=== PATIENT | female | born 1995 | race Caucasian/White ===

== ENCOUNTER 2017-08-29 18:25 | Inpatient (IN) | payer MEDICARE, OTHER ==
[2017-08-29] MEDS ORDERED: LIDOCAINE 1% (PF) 10 MG/ML (30 ML SDV) SQ PRN (18:45)
[2017-08-29] MEDS ORDERED: METHYLERGONOVINE 0.2 MG/ML 1 ML AMP IM PRN (18:45)
[2017-08-29] MEDS ORDERED: CARBOPROST TROMETHAMINE 250 MCG/ML 1 ML AMP IM PRN (18:45)
[2017-08-29] MEDS ORDERED: TERBUTALINE 1 MG/ML VIAL SQ PRN (18:45)
[2017-08-29] MEDS ORDERED: OXYTOCIN 10 UNIT/ML 1 ML VIAL IM PRN (18:45)
[2017-08-29] MEDS ORDERED: PENICILLIN G POTASSIUM 5,000,000 UNIT in DEXTROSE 5% IN WATER 100 ML IVPB STA ×2 (18:45)
[2017-08-29 19:18] VITALS: BMI 33.4
[2017-08-29] MEDS: LACTATED RINGERS 1,000 ML IV SCH (19:27)
[2017-08-29 19:40] LABS: Appearance,Urine Clear (Clear); Bacteria,Urine Rare /hpf; Bilirubin,Urine Negative (Negative); Blood,Urine Small (Negative); Color,Urine Light Yellow; Glucose,Urine (UA) Negative (Negative); Ketones,Urine Negative (Negative); Leukocyte Esterase,Urine Negative (Negative); Nitrite,Urine Negative (Negative); PH, Urine 6.5 (5.0-8.0); Protein,Urine Negative (Negative); RBC,Urine 1 /hpf (0-5); Specific Gravity,Urine 1.005 (1.001-1.035); Urobilinogen,Urine <2.0 mg/dL (<2.0); WBC,Urine 1 /hpf (0-5)
[2017-08-29 20:05] LABS: Basophils % (A) 0 %; Eosinophils # (A) 0.1 k/uL (0-0.7); Eosinophils % (A) 1 %; HCT 39.1 % (34.0-46.0); HGB 13.3 gm/dL (11.4-16.0); Lymphocytes # (A) 1.2 k/uL (1.0-4.8); Lymphocytes % (A) 10 %; MCH 29.2 pg (25.0-35.0); MCV 85.7 fL (80.0-100.0); Mean Platelet Volume 7.7; Monocytes # (A) 0.5 k/uL (0-1.0); Monocytes % (A) 4 %; Neutrophils # (A) 9.8 k/uL (1.3-7.7); Neutrophils % (A) 84 %; Platelet Count 245 k/uL (150-450); RBC 4.56 m/uL (3.80-5.40); RDW 13.2 % (11.5-15.5); WBC 11.7 k/uL (4.0-11.0)
--- NOTE | 2017-08-29 20:08 | P.HPOB ---
History of Present Illness H&P Date: 08/29/17 Chief Complaint: Abdominal and back pain. This is a 22-year-old female 1 para 0 last menstrual period uncertain, said to be a proximally 6 months ago. Patient was transferred here via ambulance from [facility] emergency room, where a flat plate x-ray was performed of the back for back pain, at which time a vertex darling fetus was noted. Patient was transferred here via ambulance. She denies fluid leakage or vaginal bleeding. She states she is unaware that she was . No care has been rendered. 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 Patient states she is sexually active using nothing for contraception. She denies gonorrhea, chlamydia, HSV or HPV infections. Past medical history is significant for ADHD and asthma. Past surgical history is negative. Current medications Ritalin 10 mg daily, albuterol inhaler twice daily as needed , last used several weeks ago. Zantac as needed for acid reflux. ALLERGIES none known. Social history patient is single, she states she is a nonsmoker and denies alcohol or drug use. Family history patient's mother is age 44, has a history of asthma but is otherwise healthy. Her father is age 46, alive and well. Patient's mother denies history of malformations or history of defects in family members. On exam she is 5 foot 9 inches, 220 pounds, and appears slow to mentation. Blood pressure 128/79, pulse 85, respirations 16, temperature 36.7, O2 saturation 97% on room air. The chest is clear in all boone. The patient appears morbidly obese. Fundal height is consistent with full-term gestation. Cervix is 7 cm dilated, -1 station, vertex presentation, with bulging fore bag. Artificial amniorrhexis reveals clear fluid, non-malodorous. heart rate is reasonably reactive with a baseline of 140, accelerations 10 beats for 10 seconds. No decelerations are noted. Uterine contractions are occurring every 3 minutes. Impression: No care, mentally slow individual with no knowledge of , in active labor with what appears to be a full-term gestation, transferred from [facility]. Plan: All labs will be drawn at this time. Close maternal and surveillance. managed services sales consultant consult. Urine drug screen has been obtained and is positive for opiates as well as tricyclic antidepressants, both of which patient denies. Anticipate normal spontaneous vaginal delivery. Review of Systems Constitutional: Reports as per HPI Past Medical History Past Medical History: Asthma Additional Past Medical History / Comment(s): ADHD History of Any Multi-Drug Resistant Organisms: None Reported Past Surgical History: No Surgical Hx Reported Past Anesthesia/Blood Transfusion Reactions: No Reported Reaction Past Psychological History: ADD/ADHD Smoking Status: Never smoker Past Alcohol Use History: None Reported Past Drug Use History: None Reported - Past Family History Mother Family Medical History: No Reported History Medications and Allergies Home Medications Medication Instructions Recorded Confirmed Type Methylphenidate HCl [Ritalin] 1 tab PO DAILY 08/29/17 08/29/17 History PARoxetine HCL [PARoxetine HCL] 08/29/17 History PARoxetine HCL [PARoxetine HCL] 08/29/17 History Ranitidine HCl [Ranitidine HCl] 1 tab PO DAILY 08/29/17 08/29/17 History Allergies Allergy/AdvReac Type Severity Reaction Status Date / Time No Known Allergies Allergy Verified 08/29/17 18:39 Exam - Vital Signs Vital signs: Vital Signs Temp Pulse Resp BP Pulse Ox 08/29/17 18:43 97.7 F 82 16 127/76 96 Intake and Output 08/29/17 08/29/17 08/29/17 06:59 14:59 22:59 Other: Weight 99.79 kg see dictation please Results Abnormal Lab Results - Last 24 Hours (Table) 08/29/17 Range/Units 19:31 Urine Blood Small H (Negative) Urine Bacteria Rare H (None) /hpf Assessment and Plan Plan: Close maternal and surveillance. managed services sales consultant consult. Anticipate spontaneous vaginal delivery. Penicillin G prophylactically. Time with Patient: Greater than 30
[2017-08-29] MEDS: OXYTOCIN 20 UNITS/1000 ML NS 1,000 ML IV SCH (20:30)
--- NOTE | 2017-08-29 21:11 | P.PROBDLV ---
Vaginal Delivery Note - . Vaginal Delivery Note: This is a 22-year-old white female 1 para 0 with no care, no established EDC, who presented via ambulance from [facility] with complaint of back pain, noted to have a full-term vertex fetus by x-ray. Please see my admitting history and physical for details. On presentation patient was noted to be 7 cm dilated, 90% effaced, -1 station, vertex presentation. There is a bulging fore bag. labs were drawn. Antibiotics given. Artificial amniorrhexis revealed clear fluid. Patient progressed through the first stage of labor with reasonably reassuring heart tones, moderate variability and no decelerations. She denied the offer for analgesia. She became completely dilated at 2024 hours and began the second stage of labor at that time. The perineal body is prepped and draped in usual sterile fashion. With good maternal expulsive efforts infant's head delivered occiput anterior and restituted accordingly. There was no nuchal cord noted. The left or anterior shoulder was delivered from underneath the pubic symphysis at which time the oropharynx, nasopharynx and external nares were all bulb suctioned on the perineal body. Patient was officially delivered of a liveborn male infant at 2052 hours. Umbilical cord was doubly clamped and ligated, he was handed to waiting nurses for evaluation where scores of 8 and 8 at one and 5 minutes respectively were given. 's weight 3225 g or 7 lbs. 2 oz. There is a two-vessel cord noted. The placenta is delivered spontaneously, it is inspected and noted to be intact at 2055 hours. There are calcifications present, it is not malodorous. Perineal body is redraped and inspected. Inspection of the cervix, vagina, perineum, periurethral and perirectal areas reveals a small first-degree perineal laceration at 5:00. This is injected with 1% lidocaine and reapproximated with a single [id number] suture of 3-0 Vicryl. Fundus is firm and in the midline, symmetric and 18 week size. Estimated blood loss 250 mL's. weighs 7 lbs. 2 oz. or 3225 g. They are requesting circumcision further son. creative services manager consult will be obtained.
[2017-08-29] MEDS ORDERED: LANOLIN CREAM 5 GM TUBE TOPICAL PRN (21:12)
[2017-08-29] MEDS ORDERED: WITCH HAZEL 1 EACH MED..PAD TOPICAL PRN (21:12)
[2017-08-29] MEDS ORDERED: BENZOCAINE/MENTHOL SPRAY 1 GM/SPRAY AEROSOL TOPICAL PRN (21:12)
[2017-08-29] MEDS ORDERED: diphenhydrAMINE ELIXIR 25 MG/10 ML CUP PO PRN (21:12)
[2017-08-29] MEDS ORDERED: diphenhydrAMINE 50 MG/ML 1 ML VIAL IVP PRN ×2 (21:12)
[2017-08-29] MEDS ORDERED: diphenhydrAMINE 50 MG CAP PO PRN (21:12)
[2017-08-29] MEDS ORDERED: diphenhydrAMINE 25 MG CAP PO PRN (21:12)
[2017-08-29] MEDS ORDERED: ACETAMINOPHEN TAB 325 MG TAB PO PRN (21:12)
[2017-08-29] MEDS ORDERED: HYDROCORTISONE 2.5% RECTAL CREAM 30 GM TUBE RECTAL PRN (21:12)
[2017-08-29] MEDS ORDERED: ZOLPIDEM 5 MG TAB PO PRN (21:12)
[2017-08-29] MEDS ORDERED: SIMETHICONE 80 MG CHEWABLE PO PRN (21:12)
[2017-08-29] MEDS: IBUPROFEN 600 MG TAB PO PRN (21:24)
[2017-08-30 01:45] LABS: HIV AB P24 Non-Reactive (Non-Reactive); HIV P24 AG Non-Reactive (Non-Reactive)
--- NOTE | 2017-08-30 08:06 | P.PN ---
Subjective Progress Note Date: 08/30/17 Principal diagnosis: day #1 Slept well. Minimal to moderate lochia rubra. Pain well controlled. Objective - Vital Signs Vital signs: Vital Signs Temp 97.7 F 08/30/17 04:00 Pulse 64 08/30/17 04:00 Resp 16 08/30/17 04:00 BP 102/62 08/30/17 04:00 Pulse Ox 96 08/29/17 18:43 Intake & Output 08/29/17 08/30/17 08/30/17 18:59 06:59 18:59 Weight 99.79 kg Other: # Voids 1 - Constitutional General appearance: Present: average body habitus, obese - EENT Eyes: Present: PERRLA ENT: Present: hearing grossly normal - Neck Neck: Present: normal ROM - Respiratory Respiratory: bilateral: CTA - Cardiovascular Rhythm: regular - Gastrointestinal General gastrointestinal: Present: normal bowel sounds - Genitourinary Genitourinary Comment(s): Perineal body clean and dry. Fundus firm, midline, symmetric, 18 week size. - Integumentary Integumentary: Present: normal - Neurologic Neurologic: Present: CNII-XII intact - Musculoskeletal Musculoskeletal: Present: gait normal - Psychiatric Psychiatric: Present: A&O x's 3, appropriate affect - Labs CBC & Chem 7: 08/29/17 19:52 08/29/17 19:52 Labs: Abnormal Lab Results - Last 24 Hours (Table) 08/29/17 08/29/17 Range/Units 19:31 19:52 WBC 11.7 H (4.0-11.0) k/uL Neutrophils # 9.8 H (1.3-7.7) k/uL Urine Blood Small H (Negative) Urine Bacteria Rare H (None) /hpf Assessment and Plan Plan: Continue care today. library services dean consult please Time with Patient: Less than 30
[2017-08-30] MEDS: SENNOSIDES-DOCUSATE SODIUM 1 EACH TAB PO SCH (09:21)
[2017-08-31] MEDS: LACTATED RINGERS 1,000 ML IV SCH ×2 (02:48→02:49)
[2017-08-31] MEDS: SENNOSIDES-DOCUSATE SODIUM 1 EACH TAB PO SCH ×2 (02:49→08:36)
[2017-08-31] MEDS: OXYTOCIN 20 UNITS/1000 ML NS 1,000 ML IV SCH (02:49)
[2017-08-31 02:51] VITALS: RESP 16
[2017-08-31 02:52] VITALS: BP 114/65; PULSE 68; TEMP 98.3
--- NOTE | 2017-08-31 07:54 | P.DS ---
Providers Date of admission: 08/29/17 18:38 Expected date of discharge: 08/31/17 Attending physician: India Pablo Primary care physician: Stated None Hospital Course: This is a 22-year-old white female 1 para 0 EDC unknown, who presented from [place] emergency room with a full term in active labor. Patient states she was unaware that she was . She has had no care. Blood type is A+, urine drug screen positive for tricyclic antidepressants as well as opiates. Please see my dictated history and physical for details. Artificial amniorrhexis revealed clear fluid, patient presented at 7 cm dilatation. Penicillin G was given. labs were drawn. Patient went on to deliver a liveborn male with scores of 8 and 8 at one and 5 minutes respectively. He weighs 3225 g or 7 lbs. 2 oz. There was a small first -degree perineal laceration easily repaired, and an estimated blood loss of 250 mL's. Please see my dictated delivery note for details. Two-vessel cord is noted. This morning the patient appears to be doing well. She is voiding, ambulating, and passing flatus. She is not breast-feeding. is in the special care nursery oxygen therapy, therefore circumcision is not yet appropriate. The patient's lungs are clear, perineal body is clean and dry, lochia rubra is minimal to moderate. Fundus is firm and in the midline, symmetric and 18 week size. Breasts are not engorged. Extremities are negative for edema. building services coordinator consult has been requested but has not yet been performed. Patient is cleared medically for discharge home only after social worker clinical teen has seen her. I have instructed the patient no intercourse, no tampons, no douching at this time. She is to keep on a clean pad and I have reviewed with her normal lochia flow. I have recommended that she start a vitamin daily and continue through 6 weeks . We have discussed briefly options for contraception and I will review this in the office with her in detail. I would like to see the patient in the office in 6 weeks, she is instructed to call for that appointment and follow-up with me. She is also to notify me with any heavy vaginal bleeding, with any pain not alleviated by over- the-counter Motrin, or indeed with any concerns. Patient Condition at Discharge: Fair Plan - Discharge Summary New Discharge Prescriptions: No Action Ranitidine HCl [Ranitidine HCl] 1 tab PO DAILY PARoxetine HCL [PARoxetine HCL] PARoxetine HCL [PARoxetine HCL] Methylphenidate HCl [Ritalin] 1 tab PO DAILY Discharge Medication List Methylphenidate HCl [Ritalin] 1 tab PO DAILY 08/29/17 [History] PARoxetine HCL [PARoxetine HCL] 08/29/17 [History] PARoxetine HCL [PARoxetine HCL] 08/29/17 [History] Ranitidine HCl [Ranitidine HCl] 1 tab PO DAILY 08/29/17 [History] Follow up Appointment(s)/Referral(s): India Pablo MD [STAFF PHYSICIAN] - 6 Weeks
--- NOTE | 2017-08-31 08:24 | P.MSEPDOC ---
Presenting Problems - Arrival Data Date of Arrival on Unit: 08/29/17 Time of Arrival on Unit: 18:20 Mode of Transport: EMS - Complaint OB-Reason for Admission/Chief Complaint: Possible Onset of Labor, Rule Out PROM Comment: pt transferred from [place]. no care. possible full term with rom and contractions Medical History - Information : 1 Para: 0 Term: 0 : 0 Abortions: Spontaneous or Elective: 0 Number of Living Children: 0 - History Comment: no care. labs drawn with admission Review of Systems - Review of Systems Constitutional: No problems Breast: No problems ENT: No problems Cardiovascular: No problems Respiratory: No problems Gastrointestinal: No problems Genitourinary: No problems Musculoskeletal: No problems Neurological: No problems Skin: No problems Vital Signs - Temperature Temperature: 98.3 F Temperature Source: Oral - Pulse Right Brachial Pulse Rate: 68 Pulse Assessment Method: Automatic Cuff - Respirations Respiratory Rate: 16 Oxygen Delivery Method: Room Air - Blood Pressure Right Arm Blood Pressure: 114/65 Blood Pressure Mean: 81 Blood Pressure Source: Automatic Cuff Medical Screen Scoring (Pre) - Cervical Exam Dilation: 8-10 cm = 3 Effacement: More than 50% = 2 Membranes: Ruptured = 3 - Uterine Contractions Frequency: > 5 minutes apart = 1 - Maternal Vital Signs Maternal Temperature: N/A Maternal Blood Pressure: N/A Signs of Preeclampsia: N/A Maternal Respirations: N/A - Pain Assessment Pain Location and Character: Back Pain Scale Used: Numeric (1 - 10) Pain Intensity: 10 Pain Management Goal: 1 Pain Frequency: Occasional Pain Duration Units: Hours Pain Behavior: None Exhibited - Assessment Heart Rate - NICHD Category: Category II (Indeterminate) = 3 NST: Reactive, Non-reactive = 3 - Total Score Total Score (Pre): 15 - Level of Risk Level of Risk: High (10+) Physician Notification (Pre) - Physician Notified Physician Notified Date: 08/29/17 Physician Notified Time: 18:45 Physician/Practitioner Notifed:: darrel Spoke With: darrel New Order Received: Yes - Notification Comment Comment: reported to dr rojo pt has arrived. has received report from [facility] before arrival. is coming in Disposition - Disposition OB Disposition: Admit I agree with the RN Medical Screening Exam: Yes Risk & Benefit of care provided described in d/c instruction: Yes Diagnosis: O75.83
[2017-08-31] MEDS: IBUPROFEN 600 MG TAB PO PRN (08:36)
[2017-08-31 11:12] LABS: Chlamydia trachomatis rRNA Not detected (Not detected); Neisseria gonorrhoeae rRNA Not detected (Not detected)
== END 2017-08-31 13:30 | disposition home health service (06) | DRG 775 ==
LOC: FBPOP 18:25 → 4FBP 18:38
PROVIDERS: ADMIT Obstetrics & Gynecology; ATTEND Obstetrics & Gynecology
PROC: 10907ZC Drainage of Amniotic Fluid, Therapeutic from Products of Conception, Via Natural or Artificial Opening (ICD-10-PCS; principal; 2017-08-29)
PROC: 0HQ9XZZ Repair Perineum Skin, External Approach (ICD-10-PCS; principal; 2017-08-29)
PROC: 10E0XZZ Delivery of Products of Conception, External Approach (ICD-10-PCS; principal; 2017-08-29)
DX: O99.324 Drug use complicating childbirth (principal); E66.01 Morbid (severe) obesity due to excess calories; O99.214 Obesity complicating childbirth; O70.0 First degree perineal laceration during delivery; O99.52 Diseases of the respiratory system complicating childbirth; J45.909 Unspecified asthma, uncomplicated; O99.344 Other mental disorders complicating childbirth; F90.9 Attention-deficit hyperactivity disorder, unspecified type; F19.10 Other psychoactive substance abuse, uncomplicated; F11.10 Opioid abuse, uncomplicated; O99.62 Diseases of the digestive system complicating childbirth; K21.9 Gastro-esophageal reflux disease without esophagitis; Z82.5 Family history of asthma and other chronic lower respiratory diseases; Z37.0 Single live birth; Z79.899 Other long term (current) drug therapy
CPT/HCPCS: 59025; 81001; 82947; 84112; 85025; 86762; 86780; 86850; 86900; 86901; 87340; 87390; 87491; 87591; 88307; 99213

== ENCOUNTER 2017-12-15 13:13 | Emergency (ER) | payer MEDICARE, OTHER ==
--- NOTE | 2017-12-15 13:35 | ED ---
General Adult HPI - General Chief complaint: Abdominal Pain Stated complaint: Constipated Time Seen by Provider: 12/15/17 13:29 Source: patient, RN notes reviewed, old records reviewed Mode of arrival: ambulatory Limitations: no limitations - History of Present Illness Initial comments: 22-year-old female presents with chief complaint constipation. Patient states he's been 6 days since her last bowel movement. She does have history of constipation. She has strained to have a bowel movement but has been unable to have any bowel movement.. Denies any dysuria or hematuria. Denies vaginal bleeding or discharge. She is currently on medication for heartburn, no opiate pain medication. She states she gets constipated when she eats dairy products. Again denies any pain complaints. No rectal pain. No vaginal pain. No abdominal pain. - Related Data Home Medications Medication Instructions Recorded Confirmed Methylphenidate HCl [Ritalin] 1 tab PO DAILY 08/29/17 12/15/17 PARoxetine HCL 20 mg PO DAILY 08/29/17 12/15/17 Ranitidine HCl 1 tab PO DAILY 08/29/17 12/15/17 Previous Rx's Medication Instructions Recorded Polyethylene Glycol 3350 [Miralax] 17 gm PO DAILY #255 gm 12/15/17 Allergies Allergy/AdvReac Type Severity Reaction Status Date / Time No Known Allergies Allergy Verified 12/15/17 13:28 Review of Systems ROS Statement: Those systems with pertinent positive or pertinent negative responses have been documented in the HPI. ROS Other: All systems not noted in ROS Statement are negative. Past Medical History Past Medical History: Asthma Additional Past Medical History / Comment(s): ADHD History of Any Multi-Drug Resistant Organisms: None Reported Past Surgical History: No Surgical Hx Reported Past Anesthesia/Blood Transfusion Reactions: No Reported Reaction Past Psychological History: ADD/ADHD Smoking Status: Never smoker Past Alcohol Use History: None Reported Past Drug Use History: None Reported - Past Family History Mother Family Medical History: No Reported History General Exam Limitations: no limitations General appearance: alert, in no apparent distress Head exam: Present: atraumatic, normocephalic Eye exam: Present: normal appearance, PERRL ENT exam: Present: normal exam Neck exam: Present: normal inspection. Absent: tenderness, meningismus Respiratory exam: Present: normal lung sounds bilaterally. Absent: respiratory distress, wheezes Cardiovascular Exam: Present: regular rate, normal rhythm GI/Abdominal exam: Present: soft. Absent: distended, tenderness, guarding, rebound Extremities exam: Present: normal inspection, normal capillary refill. Absent: pedal edema Back exam: Present: full ROM Neurological exam: Present: alert Psychiatric exam: Present: normal affect, normal mood Skin exam: Present: warm, dry, intact. Absent: cyanosis, diaphoretic Course Vital Signs 12/15/17 13:24 Temperature 98.2 F Pulse Rate 79 Respiratory 16 Rate Blood Pressure 118/76 O2 Sat by Pulse 100 Oximetry Medical Decision Making - Medical Decision Making 22-year-old female with chief complaint constipation. No pain complaints. She has not had a bowel movement in the past 6 days. X-ray does show small amount of stool, however no significant stool burning within the colon. UA and urine test negative. Patient will try MiraLAX and see if this improves her symptoms. If this does not she will follow -up with her primary care physician and may require evaluation by gastroenterology. - Lab Data Lab Results 12/15/17 12/15/17 Range/Units 13:55 13:55 Urine Color Light Yellow Urine Appearance Clear (Clear) Urine pH 7.5 (5.0-8.0) Ur Specific Gower 1.008 (1.001-1.035) Urine Protein Negative (Negative) Urine Glucose (UA) Negative (Negative) Urine Ketones Negative (Negative) Urine Blood Negative (Negative) Urine Nitrite Negative (Negative) Urine Bilirubin Negative (Negative) Urine Urobilinogen <2.0 (<2.0) mg/dL Ur Leukocyte Esterase Moderate H (Negative) Urine WBC 2 (0-5) /hpf Ur Squamous Epith Cells 3 (0-4) /hpf Amorphous Sediment Rare H (None) /hpf Urine Bacteria Few H (None) /hpf Urine Mucus Rare H (None) /hpf Urine HCG, Qual Not Detected (Not Detectd) Disposition Clinical Impression: Constipation Disposition: HOME SELF-CARE Condition: Good Prescriptions: Polyethylene Glycol 3350 [Miralax] 17 gm PO DAILY #255 gm Is patient prescribed a controlled substance at d/c from ED?: No Referrals: None,Stated [REFERRING] - 1-2 days Jonathan Cazares MD [REFERRING] - 1-2 days Time of Disposition: 14:56
[2017-12-15 14:36] LABS: Amorphous Sediment,Urine Rare /hpf; Appearance,Urine Clear (Clear); Bacteria,Urine Few /hpf; Bilirubin,Urine Negative (Negative); Blood,Urine Negative (Negative); Color,Urine Light Yellow; Glucose,Urine (UA) Negative (Negative); Ketones,Urine Negative (Negative); Leukocyte Esterase,Urine Moderate (Negative); Mucus,Urine Rare /hpf; Nitrite,Urine Negative (Negative); PH, Urine 7.5 (5.0-8.0); Protein,Urine Negative (Negative); Specific Gravity,Urine 1.008 (1.001-1.035); Squamous Epithelial Cell,Urine 3 /hpf (0-4); Urobilinogen,Urine <2.0 mg/dL (<2.0); WBC,Urine 2 /hpf (0-5)
--- NOTE | 2017-12-15 14:38 | XR ---
EXAMINATION TYPE: XR KUB DATE OF EXAM: 12/15/2017 2:25 PM CLINICAL HISTORY: Abdominal pain TECHNIQUE: Single upright image of the abdomen is obtained. COMPARISON: None. FINDINGS: Scattered gas is seen in non-distended small bowel loops. Gas and fecal material is seen in non-distended colon. There is no visceromegaly, pneumoperitoneum, or abnormal calcification apprecia luis. Very mild levoscoliotic curvature of the lumbar spine position. The lung bases are clear and the osseous structures are intact. IMPRESSION: Nonobstructive bowel gas pattern.
[2017-12-15 15:10] VITALS: BP 135/65; PULSE 72; RESP 20; TEMP 98.5
== END 2017-12-15 15:05 | disposition home or self-care (01) ==
LOC: EC 13:13
DX: K59.00 Constipation, unspecified (principal); F90.9 Attention-deficit hyperactivity disorder, unspecified type; Z79.899 Other long term (current) drug therapy
CPT/HCPCS: 74018; 81001; 81025; 99284